=== PATIENT | male | born 1960 | race African-American/Black ===

== ENCOUNTER 2019-08-21 09:15 | Emergency (ER) | payer OTHER ==
[~2019-08-21] VITALS: Ht 188 cm; Wt 100.2 kg
--- NOTE | 2019-08-21 09:30 | NUR ---
Dr Malone at the bedside for MSE.
[2019-08-21] MEDS ORDERED: INSU100V28 SQ (09:33)
[2019-08-21] MEDS ORDERED: SILVER SULFADIAZINE 1% CREAM 25 GM TUBE TP ONE (09:40)
[2019-08-21] MEDS ORDERED: SILVER SULFADIAZINE 1% CREAM 50 GM TP ONE (09:45)
--- NOTE | 2019-08-21 09:56 | NUR ---
Open wound on Rt bui and latheral rt foot, clean and dressed per Md order.
[2019-08-21 09:57] VITALS: BP 114/80
--- NOTE | 2019-08-21 10:00 | NUR ---
Patient discharged to home in stable conditon. Written and verbal after care instructions given. Patient verbalizes understanding of instructions.
== END 2019-08-21 10:00 | disposition home or self-care (01) ==
LOC: ER 09:15
DX: E11.621 Type 2 diabetes mellitus with foot ulcer (principal); Z79.4 Long term (current) use of insulin
CPT/HCPCS: A4663